=== PATIENT | male | born 1975 | race African-American/Black ===

== ENCOUNTER 2016-07-19 11:41 | Emergency (ER) | payer BC ==
--- NOTE | 2016-07-19 13:40 | RAD ---
Indication: Lower back pain. RIGHT lower extremity paresthesias. Comparison: None. Technique: AP, lateral, and oblique views lumbar sacral spine. Report: Alignment is anatomic. No cortical disruption or trabecular impaction to indicate a vertebral body fracture. Oblique views without evidence for spondylolysis. Preserved disc spaces.. Unremarkable soft tissue contours. IMPRESSION: Negative exam.
[2016-07-19 13:56] VITALS: BP 123/80
--- NOTE | 2016-07-19 14:39 | UC ---
David Ramirez Billy, scribed for Sherman Maldonado MD on 07/19/16 at 1235 . Back Pain HPI - HPI Summary HPI Summary: In Room Note: Patient is a 40 year-old male coming to [facility] [place] of bilateral mid-back pain since last night. He took a tylenol for his symptoms and then went to sleep. This morning, at 1000, he began to notice "stiffness" in the back; he states he feels as if his back is "seizing up." The pain is worse with bending. Patient denies any recent injuries or trauma. He also has intermittent tingling in the right leg from his thighs to his toes, which is most noticeable in the evening. Denies any changes in bladder or bowel movements. Denies any changes in sensation or strength. He had a similar episode of back pain 2 years ago which resolved with 2 weeks of bed rest. Note: Previous visit history includes previous complaints of back pain. Nurse's Note: pt states he felt a little bit of a tweek last night to his mid back. pt states that today at about 1100 he began to feel as if his mid to lower back was going to seize up. - History of Current Complaint Chief Complaint: UCBackPain Stated Complaint: BACK PAIN Time Seen by Provider: 07/19/16 12:28 Hx Obtained From: Patient Onset/Duration: Gradual Onset, Lasting Hours, Still Present Timing: Constant Severity Initially: Moderate Severity Currently: Moderate - L Pain Intensity: 7 Pain Scale Used: 0-10 Numeric Back Pain: Is Discrete @ - MID-BACK Aggravating: Movement, Bending Alleviating: Nothing Associated Signs And Symptoms: Positive: Tingling. Negative: Weakness, Abdominal Pain, Bladder Incontinence, Bowel Incontinence - Allergies/Home Medications Allergies/Adverse Reactions: Allergies Allergy/AdvReac Type Severity Reaction Status Date / Time Quinine Allergy Itching Verified 07/05/15 18:13 DUST/POLLEN Allergy Severe Congestion Uncoded 07/05/15 18:13 Home Medications: Home Medications Acetaminophen [Eq Pain Reliever] 650 mg PO 07/19/16 [History] PMH/Surg Hx/FS Hx/Imm Hx Endocrine History Of: Denies: Diabetes, Thyroid Disease Cardiovascular History Of: Denies: Cardiac Disorders, Hypertension Respiratory History Of: Denies: COPD, Asthma GI/ History Of: Denies: Ulcer - Surgical History Surgical History: None - Family History Known Family History: Negative: Cardiac Disease, Hypertension, Diabetes - Social History 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 [employer] Alcohol Use: None Substance Use Type: None Smoking Status (MU): Never Smoked Tobacco Review of Systems Constitutional: Negative Skin: Negative Eyes: Negative ENT: Other - SEASONAL ALLERGIES, USUAL Respiratory: Negative Cardiovascular: Negative Gastrointestinal: Negative Genitourinary: Negative Motor: Negative Neurovascular: Negative Musculoskeletal: Other: - BACK PAIN Neurological: Other - INTERMITTENT TINGLING OF THE RIGHT LEG Psychological: Negative All Other Systems Reviewed And Are Negative: Yes Physical Exam Triage Information Reviewed: Yes Appearance: Well-Appearing, No Pain Distress, Well-Nourished Vital Signs: Initial Vital Signs Temp 98.6 F 07/19/16 11:58 Pulse 74 07/19/16 11:58 Resp 18 07/19/16 11:58 BP 134/74 07/19/16 11:58 Pulse Ox 100 07/19/16 11:58 Vital Signs Reviewed: Yes Eyes: Positive: Conjunctiva Clear ENT: Positive: Hearing grossly normal, Pharynx normal, TMs normal. Negative: Muffled/hoarse voice Neck: Positive: Supple, No Lymphadenopathy Respiratory: Positive: Chest non-tender, Lungs clear, Normal breath sounds, No respiratory distress Cardiovascular: Positive: RRR, No Murmur Abdomen Description: Positive: Nontender, No Organomegaly, Soft. Negative: CVA Tenderness (R), CVA Tenderness (L) Bowel Sounds: Positive: Present Musculoskeletal Exam: Other - NO PAIN WITH PALPATION OF THE CERVICAL, THORACIC, OR LUMBOSACRAL SPINE OR PARASPINAL MUSCLES. THE LOWER EXTREMITIES SHOW FULL CIRCULATION, MOVEMENT, STRENGTH, AND SENSATION. Musculoskeletal: Positive: Strength Intact, ROM Intact Neurological: Positive: Alert Psychological: Positive: Age Appropriate Behavior Skin: Negative: rashes Diagnostics - Radiology Back Xray Xray Interpretation: No Acute Changes Radiology Interpretation Completed By: Radiologist Back Pain Course/Dx - Course Course Of Treatment: Medications have been included in the original chart and reviewed. Patient is Urgent/Emergent. BP elevated due to current condition w/o HTN in PMH. Patient is a 40 year-old male coming to [facility] [place] evaluation of mid back pain today. X-ray was negative for acute fracture. The patient by history may have intermittent bouts of sciatica, however, in the [facility] his back discomfort is related to movement and sounds as if it is musculoskeletal in nature. I advised him to restrict activity, to begin physical therapy, and to use ibuprofen for inflammation. - Differential Dx/Diagnosis Provider Diagnoses: LUMBAR STRAIN Discharge - Discharge Plan Condition: Stable Disposition: HOME Patient Education Materials: Low Back Strain (ED) Referrals: Davidson Gibbs MD [Primary Care Provider] - Additional Instructions: Thank you for helping us improve patient care by filling out the [employer] Survey. WE DISCUSSED: You have injured the muscles of your mid and low back. This does not appear to be sciatica. My recommendation is warm, moist heat in the morning; ice massage to area during the day; physical therapy. You can take acetaminophen, 1000mg, and ibuprofen 400mg, together, up to every 6 hours (four times a day). Re check at any time for increased pain, temperature, disability or change in bowl or bladder. PHYSICAL THERAPY REFERRAL: This is your referral to a physical therapist. Goals are: +++Reduction of Swelling (EGS, US, ice as needed) +++Pain Reduction (EGS, US, ice as needed) +++Restorationist of Mobility -Your diagnosis is: strain/sprain of back. -Duration of therapy: two weeks or until resolution of condition. -Your physician re-evaluation needs to be arranged by you. The documentation as recorded by the David estrada Billy accurately reflects the service I personally performed and the decisions made by me, Sherman Maldonado MD.
== END 2016-07-19 14:17 | disposition home or self-care (01) ==
LOC: UCEAST 11:41
DX: S39.012A Strain of muscle, fascia and tendon of lower back, initial encounter (principal); X58.XXXA Exposure to other specified factors, initial encounter; Y93.9 Activity, unspecified; Y92.9 Unspecified place or not applicable
CPT/HCPCS: 72110; 96360; 96374; 99212; G0463

== ENCOUNTER 2016-10-31 17:36 | Emergency (ER) | payer BC ==
[2016-10-31 17:42] VITALS: BP 119/87
--- NOTE | 2016-10-31 18:47 | UC ---
Throat Pain/Nasal Kd HPI - HPI Summary HPI Summary: complaint of sore throat since last night currently his 2 children have had strep infection denies fever and chills denies nasal congestion and cough took some acetaminophen for pain last night and this morning - History of Current Complaint Chief Complaint: UCRespiratory Stated Complaint: SORE THROAT Time Seen by Provider: 10/31/16 18:36 Hx Obtained From: Patient - Allergies/Home Medications Allergies/Adverse Reactions: Allergies Allergy/AdvReac Type Severity Reaction Status Date / Time Quinine Allergy Itching Verified 10/31/16 17:42 DUST/POLLEN Allergy Severe Congestion Uncoded 10/31/16 17:42 PMH/Surg Hx/FS Hx/Imm Hx Previously Healthy: Yes - Surgical History Surgical History: None - Family History Known Family History: Positive: None Negative: Cardiac Disease, Hypertension, Diabetes - Social History Occupation: Employed Full-time Lives: With Family Alcohol Use: None Substance Use Type: None Smoking Status (MU): Never Smoked Tobacco Review of Systems Constitutional: Negative Skin: Negative Eyes: Negative ENT: Sore Throat Respiratory: Negative Cardiovascular: Negative Gastrointestinal: Negative Genitourinary: Negative Motor: Negative Neurovascular: Negative Musculoskeletal: Negative Neurological: Negative Psychological: Negative All Other Systems Reviewed And Are Negative: Yes Physical Exam Triage Information Reviewed: Yes Appearance: No Pain Distress, Well-Nourished Vital Signs: Initial Vital Signs Temp 98.0 F 10/31/16 17:38 Pulse 73 10/31/16 17:38 Resp 16 10/31/16 17:38 BP 119/87 10/31/16 17:38 Pulse Ox 100 10/31/16 17:38 Vital Signs Reviewed: Yes Eyes: Positive: Conjunctiva Clear ENT: Positive: Pharyngeal erythema, TMs normal. Negative: Nasal congestion, Nasal drainage Neck: Positive: No Lymphadenopathy Respiratory: Positive: Lungs clear, Normal breath sounds, No respiratory distress, No accessory muscle use Cardiovascular: Positive: RRR, No Murmur, Pulses Normal Abdomen Description: Positive: Nontender, Soft Bowel Sounds: Positive: Present Musculoskeletal: Positive: No Edema Neurological: Positive: Alert Psychological Exam: Normal Skin Exam: Normal Throat Pain/Nasal Course/Dx - Differential Dx/Diagnosis Differential Diagnosis/HQI/PQRI: Pharyngitis, Tonsillitis Provider Diagnoses: pharyngitis Discharge - Discharge Plan Condition: Stable Disposition: HOME Patient Education Materials: Pharyngitis (ED) Referrals: Davidson Gibbs MD [Primary Care Provider] - Additional Instructions: Increase fluids and rest Take acetaminophen or ibuprofen for fever or pain Please review your discharge instructions. If your symptoms do not improve please call your primary care provider or return to urgent care.
== END 2016-10-31 19:25 | disposition home or self-care (01) ==
LOC: UCEAST 17:36
DX: J02.9 Acute pharyngitis, unspecified (principal)
CPT/HCPCS: 87651; 99211; G0463

== ENCOUNTER 2017-02-11 15:48 | Emergency (ER) | payer BC ==
[2017-02-11 16:02] VITALS: BP 129/84
[2017-02-11] MEDS ORDERED: Aspirin EC Low Dose* 81 MG TAB.EC PO ONE (16:22)
[2017-02-11] MEDS ORDERED: Aspirin Low Dose CHEW TAB* 81 MG PO ONE (16:26)
--- NOTE | 2017-02-11 16:27 | UC ---
Horace Ramirez Nikita, scribed for Charlotte Melendez MD on 02/11/17 at 1611 . Cardiac HPI - HPI Summary HPI Summary: This patient is a 41 year old M presenting to [facility] with a chief complaint of CP since 1-2 days ago. The CC is described as constant, feels like pressure and tight. no radiation. No nausea. no SOB. pt also with LOPEZ and has taken APAP. This has improved LOPEZ, not chest pain. no change with position, ROM. The patient rates the pain 7/10 in severity. Symptoms aggravated by nothing. Symptoms alleviated by stretching. Patient denies back pain, shoulder pain, jaw pain, teeth pain, diarrhea, abdominal pain, appetite changes, diaphoresis, SOB, and heavy lifting. Pt states has a high stress job. No cardiac hx. No h/o stress test. No HTN, HLD, DM,. tobacco. Pt has taken Tylenol which relieves the LOPEZ. Pt reports his job is stressful. Patients medication reviewed this visit. - History of Current Complaint Chief Complaint: UCChestPain Stated Complaint: CHEST TIGHTNESS Time Seen by Provider: 02/11/17 15:58 Hx Obtained From: Patient Onset/Duration: Sudden Onset, Lasting Days - 1-2 days ago, Still Present Timing: Constant Initial Severity: Moderate Current Severity: Moderate - 7/10 Character: Tightness, Pressure/Squeezing Aggravating Factor(s): Nothing Alleviating Factor(s): Other - stretching Associated Signs & Symptoms: Positive: Chest Pain - Patient reports LOPEZ. Patient denies back pain, shoulder pain, jaw pain, teeth pain, diarrhea, abdominal pain , appetite changes, diaphoresis, SOB, and heavy lifting. - Allergy/Home Medications Allergies/Adverse Reactions: Allergies Allergy/AdvReac Type Severity Reaction Status Date / Time Quinine Allergy Itching Verified 02/11/17 16:02 DUST/POLLEN Allergy Severe Congestion Uncoded 02/11/17 16:02 PMH/Surg Hx/FS Hx/Imm Hx Previously Healthy: Yes Respiratory History: Other Other Respiratory History: TB - Surgical History Surgical History: None - Family History Known Family History: Negative: Cardiac Disease, Hypertension, Diabetes - Social History Occupation: Employed Full-time Lives: With Family Alcohol Use: None Substance Use Type: None Smoking Status (MU): Never Smoked Tobacco Review of Systems Constitutional: Negative Skin: Other - denies diaphoresis ENT: Other - denies teeth pain, jaw pain Respiratory: Other - denies SOB Cardiovascular: Chest Pain Gastrointestinal: Other - denies diarrhea, abdominal pain, and appetite changes Musculoskeletal: Other: - denies heavy lifting, back pain, shoulder pain Neurological: Headache All Other Systems Reviewed And Are Negative: Yes Physical Exam Triage Information Reviewed: Yes Appearance: Well-Appearing, No Pain Distress, Well-Nourished Vital Signs: Initial Vital Signs Temp 97.9 F 02/11/17 15:52 Pulse 64 02/11/17 15:52 Resp 16 02/11/17 15:52 BP 129/84 02/11/17 15:52 Pulse Ox 99 02/11/17 15:52 Vital Signs Reviewed: Yes Eye Exam: Normal Eyes: Positive: Conjunctiva Clear ENT Exam: Normal ENT: Positive: Normal ENT inspection, Hearing grossly normal, Pharynx normal, TMs normal Neck exam: Normal Neck: Positive: Supple, Nontender, No Lymphadenopathy Respiratory Exam: Normal Respiratory: Positive: Chest non-tender, Lungs clear, Normal breath sounds, No respiratory distress, No accessory muscle use Cardiovascular Exam: Normal Cardiovascular: Positive: RRR, No Murmur, Pulses Normal, Brisk Capillary Refill , Other: - not reproducible Abdominal Exam: Normal Abdomen Description: Positive: Nontender, No Organomegaly, Soft Bowel Sounds: Positive: Present Musculoskeletal Exam: Normal Musculoskeletal: Positive: Strength Intact, Other: - pain not reproducible with ROM Neurological Exam: Normal Psychological Exam: Normal Skin Exam: Normal Diagnostics - EKG Cardiac Rate: NL Cardiac Rhythm: Sinus: Normal - 64 bpm; taken at 1559; mild elevation in ; early repol diffusely; no STEMI - Assessment/Plan Course Of Treatment: Pt with chest pressure x 2 days. Not reproducible. No h.o similar. Will give ASA. recommend transfer by EMS. Pt wants to go by POV. d/ w pt risks. Pt will leave AMA. recommend lathe puller, call 911 if needed. pt signed paperwork. agree with plan - Clinical Impression Provider Diagnoses: chest pain Discharge - Discharge Plan Condition: Stable Disposition: AGAINST MEDICAL ADVICE Patient Education Materials: Chest Pain (ED) Referrals: Davidson Gibbs MD [Primary Care Provider] - Additional Instructions: The doctor that evaluated you today recommended you go directly to the emergency department for further evaluation and treatment. This may include labwork and imaging. You have elected to drive your self and you understand you are leaving against medical advise. If you change your mind or your symptoms change, lathe puller and call 911. The documentation as recorded by the Horace estrada Nikita accurately reflects the service I personally performed and the decisions made by me, Charlotte Melendez MD.
== END 2017-02-11 16:34 | disposition left against medical advice (07) ==
LOC: UCEAST 15:48
DX: R07.89 Other chest pain (principal)
CPT/HCPCS: 93005; 99212; A9270-GY; G0463

== ENCOUNTER 2017-02-11 16:58 | Emergency (ER) | payer BC ==
[2017-02-11] MEDS ORDERED: NS 0.9% 1000 ML* 1,000 ML IV SCH (17:45)
[2017-02-11 17:49] LABS: Hematocrit 43 % (42-52); Hemoglobin 14.1 g/dl (14.0-18.0); Mean Corpuscular HGB Conc 33 g/dl (31-36); Mean Corpuscular Hemoglobin 29 pg (27-31); Mean Corpuscular Volume 86 fL (80-94); Mean Platelet Volume 8 um3 (7.4-10.4); Red Blood Count 4.94 10^6/ul (4.0-5.4); Red Cell Distribution Width 14 % (10.5-15); White Blood Count 4.3 10^3/ul (3.5-10.8)
--- NOTE | 2017-02-11 18:05 | RAD ---
INDICATION: Chest pain COMPARISON: Chest x-ray dated January 14, 2013 TECHNIQUE: Single AP portable view of the chest was obtained. FINDINGS: Image quality is compromised due to the relative inferiority of a portable chest x-ray. The heart and mediastinum exhibit normal size and contour. The lungs are grossly clear. There is no evidence of a large pleural effusion. Visualized bones are normal for the patient's age. IMPRESSION: No radiographic evidence for acute cardiopulmonary abnormality on this portable chest x-ray.
[2017-02-11 18:08] LABS: ALT 12 U/L (7-52); AST 19 U/L (13-39); Albumin 4.5 g/dL (3.2-5.2); Alkaline Phosphatase 34 U/L (34-104); Anion Gap 5 mmol/L (2-11); BUN/Creatinine Ratio 11.6 (8-20); Blood Urea Nitrogen 13 mg/dL (6-24); C Reactive Protein < 1.00 mg/L (< 5.00); CO2 Carbon Dioxide 28 mmol/L (22-32); Calcium 9.4 mg/dL (8.6-10.3); Chloride 103 mmol/L (101-111); Creatine Kinase 264 U/L (10-223); EGFR African American 92.5 (>60); EGFR Non-African American 71.9 (>60); Globulin 2.8 g/dL (2-4); Glucose 89 mg/dL (70-100); Potassium 3.9 mmol/L (3.5-5.0); Sodium 136 mmol/L (133-145); Total Protein 7.3 g/dL (6.4-8.9)
[2017-02-11 18:35] LABS: TSH (Thyroid Stimulating Horm) 0.66 mcIU/mL (0.34-5.60)
--- NOTE | 2017-02-11 18:55 | ED ---
Bobbi Ramirez Edward, scribed for Davy Carty MD on 02/11/17 at 1723 . HPI Chest Pain - HPI Summary HPI Summary: 41 y/o male presents to the ED c/o intermittent chest tightness starting three days ago. The tightness is located in the mid-sternal region. The pain is alleviated when the pt is kept busy and with deep breaths, momentarily; when he is idle the pt notices his pain more. Associated sx: severe LOPEZ for the past several days. The LOPEZ is resolved currently. Pt denies SOB, nausea, diaphoresis and radiating pain. Pt states his job is stressful. Pt took Tylenol and Ibuprofen for his LOPEZ over the weekend. Pt has not had a stress test. No relevant FHx. The pt has had chest tightness before with stress; however, the pt states it usually does not last this long. - History of Current Complaint Chief Complaint: EDChestPainROMI Time Seen by Provider: 02/11/17 17:16 Hx Obtained From: Patient Onset/Duration: Started Days Ago Current Severity: Moderate Pain Intensity: 7 Pain Scale Used: 0-10 Numeric Chest Pain Location: Mid Sternal Chest Pain Radiates: No Character: Tightness Aggravating Factor(s): Other: - Idle Alleviating Factor(s): Other: - When the pt is kept busy, deep breaths Associated Signs and Symptoms: Positive: Headaches. Negative: Shortness of Breath, Nausea, Vomiting - Allergy/Home Medications Allergies/Adverse Reactions: Allergies Allergy/AdvReac Type Severity Reaction Status Date / Time Quinine Allergy Itching Verified 02/11/17 16:02 DUST/POLLEN Allergy Severe Congestion Uncoded 02/11/17 16:02 PMH/Surg Hx/FS Hx/Imm Hx Previously Healthy: No Endocrine/Hematology History: Denies: Hx Diabetes, Hx Thyroid Disease Cardiovascular History: Denies: Hx Hypertension Respiratory History: Reports: Other Respiratory Problems/Disorders - [place]ALL ALLERGIES Denies: Hx Asthma, Hx Chronic Obstructive Pulmonary Disease (COPD) GI History: Denies: Hx Ulcer Musculoskeletal History: Reports: Hx Scoliosis Neurological History: Denies: Hx Headaches Infectious Disease History: No Infectious Disease History: Reports: Hx Tuberculosis - HX EXPOSURE TO TB Denies: Hx Clostridium Difficile, Hx Hepatitis, Hx Human Immunodeficiency Virus (HIV), Hx of Known/Suspected MRSA, Hx Shingles, Hx Known/Suspected VRE, Hx Known/Suspected VRSA, History Other Infectious Disease, Traveled Outside the [place] in Last 30 Days - Family History Known Family History: Negative: Cardiac Disease, Hypertension, Diabetes - Social History Occupation: Employed Full-time Lives: With Family Alcohol Use: None Hx Substance Use: No Substance Use Type: Reports: None Hx Tobacco Use: No Smoking Status (MU): Never Smoked Tobacco Review of Systems Constitutional: Negative Eyes: Negative ENT: Negative Positive: Chest Pain Respiratory: Negative Gastrointestinal: Negative Genitourinary: Negative Musculoskeletal: Negative Skin: Negative Positive: Headache Psychological: Normal All Other Systems Reviewed And Are Negative: Yes Physical Exam Triage Information Reviewed: Yes Vital Signs On Initial Exam: Initial Vitals Temp Pulse Resp BP Pulse Ox 97.7 F 78 16 116/82 100 02/11/17 17:09 02/11/17 17:09 02/11/17 17:09 02/11/17 17:09 02/11/17 17:09 Vital Signs Reviewed: Yes Appearance: Positive: Well-Appearing, No Pain Distress Skin: Positive: Warm, Skin Color Reflects Adequate Perfusion, Dry Head/Face: Positive: Normal Head/Face Inspection Eyes: Positive: EOMI, MARCELINO ENT: Positive: Normal ENT inspection Neck: Positive: Supple, Nontender Respiratory/Lung Sounds: Positive: Clear to Auscultation, Breath Sounds Present Cardiovascular: Positive: RRR Abdomen Description: Positive: Nontender, Soft Bowel Sounds: Positive: Present Musculoskeletal: Positive: Normal, Strength/ROM Intact Neurological: Positive: Normal, Sensory/Motor Intact, Alert, Oriented to Person Place, Time Psychiatric: Positive: Affect/Mood Appropriate Diagnostics - Vital Signs Vital Signs Temp Pulse Resp BP Pulse Ox 02/11/17 17:09 97.7 F 78 16 116/82 100 - Laboratory Lab Results: Lab Results 02/11/17 02/11/17 02/11/17 Range/Units 17:38 17:38 17:38 WBC (3.5-10.8) 10^3/ul RBC (4.0-5.4) 10^6/ul Hgb (14.0-18.0) g/dl Hct (42-52) % MCV (80-94) fL MCH (27-31) pg MCHC (31-36) g/dl RDW (10.5-15) % Plt Count (150-450) 10^3/ul MPV (7.4-10.4) um3 Neut % (Auto) (38-83) % Lymph % (Auto) (25-47) % Waldo % (Auto) (1-9) % Eos % (Auto) (0-6) % Baso % (Auto) (0-2) % Absolute Neuts (auto) (1.5-7.7) 10^3/ul Absolute Lymphs (auto) (1.0-4.8) 10^3/ul Absolute Monos (auto) (0-0.8) 10^3/ul Absolute Eos (auto) (0-0.6) 10^3/ul Absolute Basos (auto) (0-0.2) 10^3/ul Absolute Nucleated RBC 10^3/ul Nucleated RBC % INR (Anticoag Therapy) 0.96 (0.89-1.11) APTT 32.1 (26.0-36.3) seconds D-Dimer, Quantitative < 200 (Less Than 230) ng/mL Sodium 136 (133-145) mmol/L Potassium 3.9 (3.5-5.0) mmol/L Chloride 103 (101-111) mmol/L Carbon Dioxide 28 (22-32) mmol/L Anion Gap 5 (2-11) mmol/L BUN 13 (6-24) mg/dL Creatinine 1.12 (0.67-1.17) mg/dL Est GFR ( Amer) 92.5 (>60) Est GFR (Non-Af Amer) 71.9 (>60) BUN/Creatinine Ratio 11.6 (8-20) Glucose 89 (70-100) mg/dL Lactic Acid (0.5-2.0) mmol/L Calcium 9.4 (8.6-10.3) mg/dL Magnesium 2.0 (1.9-2.7) mg/dL Total Bilirubin 0.70 (0.2-1.0) mg/dL AST 19 (13-39) U/L ALT 12 (7-52) U/L Alkaline Phosphatase 34 (34-104) U/L Total Creatine Kinase 264 H (10-223) U/L CK-MB (CK-2) 1.9 (0.6-6.3) ng/mL Troponin I 0.00 (<0.04) ng/mL C-Reactive Protein < 1.00 (< 5.00) mg/L B-Natriuretic Peptide 10 ( - 100) pg/mL Total Protein 7.3 (6.4-8.9) g/dL Albumin 4.5 (3.2-5.2) g/dL Globulin 2.8 (2-4) g/dL Albumin/Globulin Ratio 1.6 (1-3) TSH 0.66 (0.34-5.60) mcIU/mL 02/11/17 02/11/17 Range/Units 17:38 17:38 WBC 4.3 (3.5-10.8) 10^3/ul RBC 4.94 (4.0-5.4) 10^6/ul Hgb 14.1 (14.0-18.0) g/dl Hct 43 (42-52) % MCV 86 (80-94) fL MCH 29 (27-31) pg MCHC 33 (31-36) g/dl RDW 14 (10.5-15) % Plt Count 223 (150-450) 10^3/ul MPV 8 (7.4-10.4) um3 Neut % (Auto) 65.5 (38-83) % Lymph % (Auto) 27.7 (25-47) % Waldo % (Auto) 5.6 (1-9) % Eos % (Auto) 0.8 (0-6) % Baso % (Auto) 0.4 (0-2) % Absolute Neuts (auto) 2.8 (1.5-7.7) 10^3/ul Absolute Lymphs (auto) 1.2 (1.0-4.8) 10^3/ul Absolute Monos (auto) 0.2 (0-0.8) 10^3/ul Absolute Eos (auto) 0 (0-0.6) 10^3/ul Absolute Basos (auto) 0 (0-0.2) 10^3/ul Absolute Nucleated RBC 0.01 10^3/ul Nucleated RBC % 0.2 INR (Anticoag Therapy) (0.89-1.11) APTT (26.0-36.3) seconds D-Dimer, Quantitative (Less Than 230) ng/mL Sodium (133-145) mmol/L Potassium (3.5-5.0) mmol/L Chloride (101-111) mmol/L Carbon Dioxide (22-32) mmol/L Anion Gap (2-11) mmol/L BUN (6-24) mg/dL Creatinine (0.67-1.17) mg/dL Est GFR ( Amer) (>60) Est GFR (Non-Af Amer) (>60) BUN/Creatinine Ratio (8-20) Glucose (70-100) mg/dL Lactic Acid 0.6 (0.5-2.0) mmol/L Calcium (8.6-10.3) mg/dL Magnesium (1.9-2.7) mg/dL Total Bilirubin (0.2-1.0) mg/dL AST (13-39) U/L ALT (7-52) U/L Alkaline Phosphatase (34-104) U/L Total Creatine Kinase (10-223) U/L CK-MB (CK-2) (0.6-6.3) ng/mL Troponin I (<0.04) ng/mL C-Reactive Protein (< 5.00) mg/L B-Natriuretic Peptide ( - 100) pg/mL Total Protein (6.4-8.9) g/dL Albumin (3.2-5.2) g/dL Globulin (2-4) g/dL Albumin/Globulin Ratio (1-3) TSH (0.34-5.60) mcIU/mL Result Diagrams: 02/11/17 17:38 02/11/17 17:38 Lab Statement: Any lab studies that have been ordered have been reviewed, and results considered in the medical decision making process. - Radiology CXR Xray Interpretation: No Acute Changes - No radiographic evidence for acute cardiopulmonary abnormality on this portable chest x-ray. Radiology Interpretation Completed By: Radiologist - ED PHYSICIAN REVIEWS AND AGREES - Additional Comments Diagnostic Additional Comments: EKG - 17:24 - SR @ [address] elevation probably due to normal early repolarization pattern. No ectopy Re-Evaluation - Re-Evaluation 1 Re-Evaluation Time: 18:35 Comment: Inform pt of test results, discuss plan of care Chest Pain Course/Dx - Course Course Of Treatment: CHEST TIGHTNESS HAS BEEN GOING ON FOR 2-3 DAYS. TROPONIN NEGATIVE. DDIMER NEGATIVE. EKGS CONSISTENT WITH EARLY REPOLARIZATION. DISCUSSED RESULTS WITH PATIENT. DISCUSSED ADMISSION FOR STRESS TEST. PATIENT PREFERS TO F/U WITH PMD. F/U PMD; RETURN IF WORSE. - Diagnoses Provider Diagnoses: Chest pain Discharge - Discharge Plan Condition: Stable Disposition: HOME Patient Education Materials: Chest Pain (ED) Referrals: Davidson Gibbs MD [Primary Care Provider] - Additional Instructions: FOLLOW UP WITH YOUR DOCTOR. RETURN TO THE EMERGENCY DEPARTMENT FOR ANY WORSENING OF YOUR CONDITION: CHEST PAIN, SHORTNESS OF BREATH, YOU FELL ILL OR QUESTIONS OR CONCERNS. The documentation as recorded by the Bobbi estrada Edward accurately reflects the service I personally performed and the decisions made by me, Davy Carty MD.
[2017-02-11 19:11] VITALS: BP 129/79
== END 2017-02-11 19:12 | disposition home or self-care (01) ==
LOC: ED 16:58
DX: R07.9 Chest pain, unspecified (principal); M41.9 Scoliosis, unspecified
CPT/HCPCS: 36415; 71010; 80053; 82550; 82553; 83605; 83735; 83880; 84443; 84484; 85025; 85379; 85610; 85730; 86140; 93005; 99282

== ENCOUNTER 2018-01-03 17:36 | Emergency (ER) | payer BC, OTHER ==
[2018-01-03 17:56] VITALS: BP 129/76
--- NOTE | 2018-01-03 18:16 | UC ---
Neck Pain HPI - HPI Summary HPI Summary: 42 yo male presents with right neck pain/upper back pain for the lsat 4 days. He tells me that 4 days ago he was stretching and felt a pull in his right upper back/neck. Since that time has had pain and tightness in the area. He has taken norco and ibuprofen 800mg for the pain with little relief. Has also been to PT twice in the last 2 days with no relief. Denies numbness or tingling. - History of Current Complaint Chief Complaint: UCUpperExtremity Stated Complaint: SHOULDER,NECK INJURY Hx Obtained From: Patient Onset/Duration Of Injury/Symptoms: Days Onset/Duration: Sudden Onset Severity: Severe Pain Intensity: 9 Pain Scale Used: 0-10 Numeric - Allergies/Home Medications Allergies/Adverse Reactions: Allergies Allergy/AdvReac Type Severity Reaction Status Date / Time quinine Allergy Itching Verified 01/03/18 17:56 DUST/POLLEN Allergy Severe Congestion Uncoded 01/03/18 17:56 Home Medications: Home Medications Ibuprofen 800 mg PO 01/03/18 [History] PMH/Surg Hx/FS Hx/Imm Hx - Additional Past Medical History Additional PMH: None - Surgical History Surgical History: None - Family History Known Family History: Positive: None Negative: Cardiac Disease, Hypertension, Diabetes - Social History Occupation: Employed Full-time Lives: With Family Alcohol Use: None Substance Use Type: None Smoking Status (MU): Never Smoked Tobacco Review Of Systems Constitutional: Positive: Negative Skin: Positive: Negative Respiratory: Positive: Negative Cardiovascular: Positive: Negative Musculoskeletal: Positive: Other: - Right upper back/neck pain Neurological: Positive: Negative Psychological: Positive: Negative All Other Systems Reviewed And Are Negative: Yes Physical Exam - Summary Physical Exam Summary: GENERAL: NAD. WDWN. No pain distress. SKIN: No rashes, sores, lesions, or open wounds. CHEST: No accessory muscle use. Breathing comfortably and in no distress. CV: Pulses intact radial and ulnar. Cap refill <2seconds MSK: Right trapezius muscle with spasm and moderate TTP. Right shoulder NTTP and FROM - flexion causes pain in trapezius. NEURO: Alert. Sensations intact C4-T1 PSYCH: Age appropriate behavior. Triage Information Reviewed: Yes Vital Signs: Initial Vital Signs Temp 97.8 F 01/03/18 17:51 Pulse 69 01/03/18 17:51 Resp 18 01/03/18 17:51 BP 129/76 01/03/18 17:51 Pulse Ox 100 01/03/18 17:51 Vital Signs Reviewed: Yes Neck Pain Course/Dx - Course Course Of Treatment: Pt was given toradol in the clinic and will rx for Flexeril. Advised to apply heat to the area and continue taking his at home norco and following with PT for further treatment. - Differential Dx/Diagnosis Provider Diagnoses: Trapezius muscle spasm Discharge - Sign-Out/Discharge Documenting (check all that apply): Patient Departure All imaging exams completed and their final reports reviewed: No Studies - Discharge Plan Condition: Stable Disposition: HOME Prescriptions: Cyclobenzaprine TAB* [Flexeril 10 MG TAB*] 10 mg PO TID PRN #21 tab PRN Reason: Pain Patient Education Materials: Muscle Spasm (ED) Referrals: Davidson Gibbs MD [Primary Care Provider] - If Needed Additional Instructions: If you develop a fever, shortness of breath, chest pain, new or worsening symptoms - please call your PCP or go to the ED. 1) Continue to take ibuprofen 800mg every 6-8hours as needed for pain starting tomorrow 2) Continue your at home pain medication 3) Continue physical therapy 4) If your symptoms worsen or persist please be rechecked - Billing Disposition and Condition Condition: STABLE Disposition: Home - Attestation Statements Provider Attestation: Per institutional requirements, I have reviewed the chart, however, I was not consulted specifically or made aware of this patient by the midlevel provider. I did not personally evaluate, interact with , or disposition this patient.
[2018-01-03] MEDS ORDERED: Ketorolac INJ* 60 MG/2 ML VIAL IM ONE (18:26)
== END 2018-01-03 18:44 | disposition home or self-care (01) ==
LOC: UCEAST 17:36
DX: M62.838 Other muscle spasm (principal); Z88.8 Allergy status to other drugs, medicaments and biological substances
CPT/HCPCS: 96372; 99212; G0463; J1885

== ENCOUNTER 2018-01-10 15:51 | Emergency (ER) | payer OTHER ==
[2018-01-10 16:26] VITALS: BP 131/79
[2018-01-10] MEDS ORDERED: Ketorolac INJ* 60 MG/2 ML VIAL IM ONE (16:38)
--- NOTE | 2018-01-10 16:38 | UC ---
Upper Extremity HPI - HPI Summary HPI Summary: This patient is a 42 year old M presenting to [facility] with a chief complaint of right posterior shoulder pain that radiates down his right arm and into his fingers. Pt states he was stretching 11 days ago and felt a sharp pain in his shoulder and into his neck. The patient rates the pain 4/10 in severity. Symptoms aggravated by movement. - History of Current Complaint Chief Complaint: UCUpperExtremity Stated Complaint: SHOULDER PAIN Time Seen by Provider: 01/10/18 16:17 Hx Obtained From: Patient Onset/Duration: Lasting Days, Still Present Severity Initially: Moderate Severity Currently: Moderate Pain Intensity: 8 Pain Scale Used: 0-10 Numeric Location Of Pain: Is Discrete @ Character: Sharp Aggravating Factor(s): Movement Alleviating Factor(s): Ice Associated Signs And Symptoms: Negative: Swelling, Fever - Allergies/Home Medications Allergies/Adverse Reactions: Allergies Allergy/AdvReac Type Severity Reaction Status Date / Time quinine Allergy Itching Verified 01/10/18 16:26 DUST/POLLEN Allergy Severe Congestion Uncoded 01/10/18 16:26 Home Medications: Home Medications Zolpidem Tartrate [Ambien] 5 mg PO QPM 01/10/18 [History Confirmed 01/10/18] PMH/Surg Hx/FS Hx/Imm Hx Respiratory History: Other Other Respiratory History: seasonal allergies, Psychological History: Other Other Psychological History: trouble sleeping Other History Of: Negative For: Anticoagulant Therapy - Surgical History Surgical History: None - Family History Known Family History: Negative: Cardiac Disease, Hypertension, Diabetes - Social History Alcohol Use: None Substance Use Type: None Smoking Status (MU): Never Smoked Tobacco Review of Systems Constitutional: Negative - fever Musculoskeletal: Other: - right shoulder pain that radiates down his right arm and into his fingers. All Other Systems Reviewed And Are Negative: Yes Physical Exam - Summary Physical Exam Summary: General: well-appearing, no pain distress Skin: warm, color reflects adequate perfusion, dry Head: normal Eyes: EOMI, MARCELINO ENT: normal Neck: supple, nontender Respiratory: CTA, breath sounds present Cardiovascular: RRR Abdomen: soft, nontender Bowel: present Musculoskeletal: normal, strength/ROM intact, full ROM, good capillary refill, no decreased sensation Neurological: sensory/motor intact, A&O x3 Psychological: affect/mood appropriate Triage Information Reviewed: Yes Vital Signs: Initial Vital Signs Temp 97.1 F 01/10/18 16:20 Pulse 81 01/10/18 16:20 Resp 18 01/10/18 16:20 BP 131/79 01/10/18 16:20 Pulse Ox 99 01/10/18 16:20 Vital Signs Reviewed: Yes Upper Extremity Course/Dx - Course Course Of Treatment: This patient is a 42-year-old male who presents to the urgent care with chief complaint right shoulder pain. The patient reports that he was stretching and he felt some pull muscle in the right upper back in the posterior aspect of the right shoulder and since then the patient is having pain. Patient reported he started having some numbness in the fingers gino have disappeared. Right now the patient only reports pain in the upper back. Patient denies any neck pain, denies any weakness and bilateral lower extremities, denies any urinary or fecal dysfunction, denies any neck pain, denies any headache, denies any chest pain or shortness of breath. Since the patient did not have any history of trauma and he has full range of motion of the right shoulder I have no suspicion for fracture dislocation. I believe that the patient pulled a muscle and since that the patient is having the pain. The numbness in the fingers have resolved and is no longer present. Therefore the patient will be discharged home with follow-up with PCP. He was strongly recommended if he develops any numbness or weakness in the upper or lower extremities the patient should immediately return to the urgent care or go to the emergency department for further assessment and workup. The patient understands and verbalizes understanding. Patient is hemodynamically stable on a train to 3. - Differential Dx/Diagnosis Differential Diagnosis/HQI/PQRI: Bursitis, Contusion, Strain, Sprain Provider Diagnoses: Shoulder pain Discharge - Sign-Out/Discharge Documenting (check all that apply): Patient Departure All imaging exams completed and their final reports reviewed: No Studies - Discharge Plan Condition: Stable Disposition: HOME Patient Education Materials: Shoulder Pain (ED) Referrals: Davidson Gibbs MD [Primary Care Provider] - Additional Instructions: Take Acetaminophen or ibuprofen for pain Increase your fluid intake Return to the or go to the emergency department if symptoms worsen Follow-up with primary care physician in next 2-3 days - Billing Disposition and Condition Condition: STABLE Disposition: Home - Attestation Statements Document Initiated by Scribe: Yes Documenting Radhaibe: Trever Wise Provider For Whom Scribe is Documenting (Include Credential): Steven Flores MD Scribe Attestation: I, Trever Wise, scribed for Steven Flores MD on 01/10/18 at 1807. Scribe Documentation Reviewed: Yes Provider Attestation: The documentation as recorded by the Trever estrada accurately reflects the service I personally performed and the decisions made by me, Steven Flores MD
== END 2018-01-10 17:00 | disposition home or self-care (01) ==
LOC: UCEAST 15:51
DX: M25.511 Pain in right shoulder (principal)
CPT/HCPCS: 96372; 99211; G0463; J1885

== ENCOUNTER 2018-10-01 17:14 | Emergency (ER) | payer BC ==
[2018-10-01 18:20] VITALS: BP 127/76
--- NOTE | 2018-10-01 21:04 | UC ---
Knee Pain HPI - HPI Summary HPI Summary: WHILE RUNNING A WEEK AGO FELT A SUDDEN PAIN IN THE BACK OF HIS LEFT KNEE. IT HAS NOT IMPROVED SINCE THEN. HURTS WHEN HE WALKS. IBUPROFEN HELPS. - History of Current Complaint Chief Complaint: UCLowerExtremity Stated Complaint: LEFT KNEE PAIN Time Seen by Provider: 10/01/18 20:25 Hx Obtained From: Patient Onset/Duration: Sudden Onset, Lasting Days, Still Present Severity Initially: Moderate Severity Currently: Moderate Pain Intensity: 8 Pain Scale Used: 0-10 Numeric Character: Sharp Aggravating Factor(s): Movement, Weight Bearing Alleviating Factor(s): Rest, OTC Meds - IBVUPROFEN Associated Signs And Symptoms: Positive: Negative Able to Bear Weight: Yes - Allergies/Home Medications Allergies/Adverse Reactions: Allergies Allergy/AdvReac Type Severity Reaction Status Date / Time quinine Allergy Itching Verified 10/01/18 18:20 DUST/POLLEN Allergy Severe Congestion Uncoded 10/01/18 18:20 Home Medications: Home Medications Escitalopram * [Lexapro 5 mg (NF)] 5 mg PO DAILY 10/01/18 [History Confirmed 01/10] PMH/Surg Hx/FS Hx/Imm Hx Previously Healthy: Yes Other History Of: Negative For: Anticoagulant Therapy - Surgical History Surgical History: None - Family History Known Family History: Negative: Cardiac Disease, Hypertension, Diabetes - Social History Alcohol Use: None Substance Use Type: None Smoking Status (MU): Never Smoked Tobacco Review of Systems All Other Systems Reviewed And Are Negative: Yes Constitutional: Positive: Negative Skin: Positive: Negative Respiratory: Positive: Negative Cardiovascular: Positive: Negative Gastrointestinal: Positive: Negative Musculoskeletal: Positive: Arthralgia, Decreased ROM Physical Exam Triage Information Reviewed: Yes Appearance: Well-Appearing, No Pain Distress, Well-Nourished Vital Signs: Initial Vital Signs Temp 97.6 F 10/01/18 18:16 Pulse 62 10/01/18 18:16 Resp 16 10/01/18 18:16 BP 127/76 10/01/18 18:16 Pulse Ox 100 10/01/18 18:16 Vital Signs Reviewed: Yes Eyes: Positive: Conjunctiva Clear ENT: Positive: Hearing grossly normal Neck: Positive: Supple Respiratory: Positive: No respiratory distress, No accessory muscle use Cardiovascular: Positive: Pulses Normal Abdomen Description: Positive: Soft Musculoskeletal: Positive: No Edema, ROM Limited @ - LEFT KNEE FLEXION, Other: - LEFT KNEE: NO JOINT LINE TENDERNESS OR TENDERNESS OVER ANY BONY PROMINENCES. MCL AND LCL INTACT TO STRESS TESTING. NEG LACHMANS. NEG DRAWERS SIGNS. NEG MCMURRAYS. NEG PATELLAR APPREHENSION TEST. NO TENDERNESS OVER PATELLAR LIGAMENT OR QUADRICEPS TENDON. DECREASED ROM (FLEXION). TENDER POPLITEAL FOSSA Neurological: Positive: Alert Psychological: Positive: Age Appropriate Behavior Skin: Negative: Rashes Knee Pain Course/Dx - Course Course Of Treatment: PATIENT SYMPTOMS CONSISTENT WITH A OROZCO'S CYST VERSUS BURSITIS. ADVISED TO REST AND CONTINUE IBUPROFEN. CALL ORTHOPEDICS IN THE MORNING FOR FOLLOW-UP APPOINTMENT. LAQUITA WRAP PROVIDED FOR SOME COMPRESSION AND SUPPORT. PATIENT DECLINES X-RAY TODAY. - Differential Dx/Diagnosis Provider Diagnosis: Posterior left knee pain Discharge - Sign-Out/Discharge Documenting (check all that apply): Patient Departure All imaging exams completed and their final reports reviewed: No Studies - Discharge Plan Condition: Stable Disposition: HOME Prescriptions: Ibuprofen TAB* [Motrin TAB* 600 MG] 1 tab PO Q6H PRN #30 tab PRN Reason: Pain Patient Education Materials: Knee Bursitis (ED), Bakers Cyst (ED) Referrals: Johnnie Gonzalez MD [Medical Doctor] - 2 Days Davidson Gibbs MD [Primary Care Provider] - If Needed Additional Instructions: YOU MAY HAVE A OROZCO'S CYST OR BURSITIS CAUSING YOUR DISCOMFORT. REST, LAQUITA WRAP , CONTINUE IBUPROFEN NEEDED FOR DISCOMFORT. TAKE WITH A LITTLE SNACK AND PLENTY OF WATER. CALL ORTHOPEDICS TOMORROW FOR AN APPOINTMENT THIS WEEK OR EARLY NEXT FOR FURTHER EVALUATION. - Billing Disposition and Condition Condition: STABLE Disposition: Home
== END 2018-10-01 21:00 | disposition home or self-care (01) ==
LOC: UCEAST 17:14
DX: M25.562 Pain in left knee (principal)
CPT/HCPCS: 99212; G0463